=== PATIENT | male | born 1965 | race Caucasian/White ===

== ENCOUNTER → 2023-09-23 12:16 | Outpatient (REF) | payer OTHER, SELFPAY | LOC: RAD 12:16 | PROVIDERS: ATTENDING PHYSICIAN Family Medicine | DX: R05.3 Chronic cough (principal) | CPT/HCPCS: 71046 ==

== ENCOUNTER → 2023-12-28 11:18 | Outpatient (REF) | payer OTHER, SELFPAY | LOC: RCS 11:18 | PROVIDERS: ATTENDING PHYSICIAN Family Medicine | DX: R55 Syncope and collapse (principal) | CPT/HCPCS: 93005 ==

== ENCOUNTER 2024-10-06 06:19 | Day surgery (SDC) | payer OTHER, SELFPAY | END 2024-10-06 09:33 | disposition home or self-care (01) | LOC: GI 06:19 | PROVIDERS: ATTENDING PHYSICIAN Internal Medicine Gastroenterology; FAMILY PHYSICIAN Internal Medicine Geriatric Medicine | DX: Z12.11 Encounter for screening for malignant neoplasm of colon (principal); K64.8 Other hemorrhoids; K57.30 Diverticulosis of large intestine without perforation or abscess without bleeding; K31.7 Polyp of stomach and duodenum; K31.89 Other diseases of stomach and duodenum; K22.70 Barrett's esophagus without dysplasia; D12.3 Benign neoplasm of transverse colon; K29.50 Unspecified chronic gastritis without bleeding; Z83.719 Family history of colon polyps, unspecified | CPT/HCPCS: 45380; 43239; 88305; 88342 ==

== ENCOUNTER → 2024-12-21 17:18 | Outpatient (REF) | payer OTHER, SELFPAY | LOC: RAD 17:18 | PROVIDERS: ATTENDING PHYSICIAN Physical Medicine & Rehabilitation; FAMILY PHYSICIAN Internal Medicine Geriatric Medicine | DX: S05.40XA Penetrating wound of orbit with or without foreign body, unspecified eye, initial encounter (principal) | CPT/HCPCS: 70030 ==

== ENCOUNTER → 2025-02-27 16:23 | Outpatient (REF) | payer OTHER, SELFPAY | LOC: RAD 16:23 | PROVIDERS: ATTENDING PHYSICIAN Specialist; FAMILY PHYSICIAN Internal Medicine Geriatric Medicine | DX: Z01.818 Encounter for other preprocedural examination (principal) | CPT/HCPCS: 70030 ==

== ENCOUNTER → 2025-06-11 06:49 | Outpatient (REF) | payer OTHER, SELFPAY | LOC: HWRCS 06:49 | PROVIDERS: ATTENDING PHYSICIAN Internal Medicine Cardiovascular Disease; FAMILY PHYSICIAN Internal Medicine Geriatric Medicine | DX: R06.02 Shortness of breath (principal) | CPT/HCPCS: 78452; 93017; A9500 ==

== ENCOUNTER → 2025-07-20 09:05 | Outpatient (REF) | payer OTHER, SELFPAY | LOC: DHVS 09:05 | PROVIDERS: ATTENDING PHYSICIAN Specialist; FAMILY PHYSICIAN Internal Medicine Geriatric Medicine | DX: I73.9 Peripheral vascular disease, unspecified (principal) | CPT/HCPCS: 93925 ==